=== PATIENT | male | born 2000 | race Caucasian/White ===

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

== ENCOUNTER 2024-11-02 02:46 | Emergency (ER) | payer OTHER ==
[2024-11-02 02:56] VITALS: BP 144/99; PULSE 96; RESP 18; TEMP 97.9; BMI 29.3
[2024-11-02] MEDS ORDERED: ACETAMINOPHEN INJECTION 100 ML ONE (03:44)
[2024-11-02] MEDS: SODIUM CHLORIDE 1,000 ML IV STA ×2 (03:44→05:32)
[2024-11-02] MEDS: ACETAMINOPHEN 1000 MG/100 ML BAG IVPB ONE (03:46)
[2024-11-02 04:15] LABS: ABSOLUTE IMMATURE GRANULOCYTES 0.39 x10^3/uL (0.0-0.031); EOSINOPHIL % 0.5 % (0.8-7.0); EOSINOPHILS # 0.05 x10^3/uL (0.04-0.54); HEMATOCRIT 44.6 % (40.1-51.0); HEMOGLOBIN 15.5 g/dL (13.7-17.5); MCHC 34.8 g/dl (32.3-36.5); MEAN CELL VOLUME 86.6 fl (79.0-92.2); MEAN PLT VOLUME 11.5 fl (9.4-12.4); MONOCYTE # 0.89 x10^3/uL (0.30-0.82); MONOCYTE % 9.1 % (5.3-12.2); PLATELET COUNT 236 x10^3/uL (163-337); RDW 12.5 % (11.9-15.3)
[2024-11-02 04:16] LABS: PH,URINE 5.5 (5.0-8.0); URINE APPEARANCE CLEAR; URINE BILIRUBIN NEGATIVE (NEGATIVE); URINE COLOR YELLOW; URINE GLUCOSE (UA) 3+ (NEGATIVE); URINE KETONE 1+ (NEGATIVE); URINE LEUK ESTERASE NEGATIVE (NEGATIVE); URINE NITRITE NEGATIVE (NEGATIVE); URINE PROTEIN NEGATIVE (NEGATIVE); URINE UROBILINOGEN 0.2 mg/dL (0.2-1.0)
[2024-11-02 04:21] LABS: VENOUS BASE EXCESS -2.5 mmol/L (-2-2); VENOUS O2 SATURATION 95.8 % (70-80); VENOUS PCO2 35.4 mmHg (38-52); VENOUS PH 7.403 (7.310-7.410)
[2024-11-02 04:34] LABS: POTASSIUM 3.9 mmol/L (3.5-5.1)
[2024-11-02 04:40] LABS: CREATININE 0.8 mg/dL (0.55-1.3)
[2024-11-02 04:41] LABS: BILIRUBIN,TOTAL 0.4 mg/dL (0.2-1)
[2024-11-02 05:17] LABS: BLOOD UREA NITROGEN 11.2 mg/dL (7-18); TOT PROT 7.1 g/dl (6.4-8.2)
[2024-11-02 05:32] LABS: HCV DIAGNOSTIC IN-HOUSE W/RFLX NON-REACTIVE (NONREACTIVE); HIV INTERPRETATION NEGATIVE (NEGATIVE)
== END 2024-11-02 05:45 | disposition left against medical advice (07) ==
LOC: FER 02:46
PROC: 3E033NZ Introduction of Analgesics, Hypnotics, Sedatives into Peripheral Vein, Percutaneous Approach (ICD-10-PCS; principal; 2024-11-02)
PROC: 3E0337Z Introduction of Electrolytic and Water Balance Substance into Peripheral Vein, Percutaneous Approach (ICD-10-PCS; 2024-11-02)
PROC: 3E0337Z Introduction of Electrolytic and Water Balance Substance into Peripheral Vein, Percutaneous Approach (ICD-10-PCS; 2024-11-02)
DX: E11.9 Type 2 diabetes mellitus without complications (principal); R63.1 Polydipsia; R51.9 Headache, unspecified
CPT/HCPCS: 36415; 80053; 81003; 82010; 82803; 82962; 85025; 86803; 87389; 99284-25; J0131